=== PATIENT | female | born 1945 | race African-American/Black ===

== ENCOUNTER 2017-06-07 15:48 | Inpatient (IN) | payer OTHER ==
[~2017-06-07] VITALS: Ht 157.5 cm; Wt 68.9 kg
--- NOTE | ~2017-06-07 | PLAN ---
[facility] [place] [address] REHAB UNIT PLAN OF CARE Name: STEFANIA HERNANDEZ Room #: 506-1 ADM IN M.R.#: [id number] Admission: 06/08/17 Attend Phys: Rajendra Bowers MD Discharge: Date of : 49 Report #: [id number] THIS REPORT FOR: //name// CC: Rajendra Rivers DATE OF SERVICE: 06/09/2017 SUBJECTIVE: The patient is seen back today in followup. OBJECTIVE: She was in no distress. Last recorded temperature 37.3, pulse 93, respirations 18, blood pressure 130/63. The patient is alert. No focal calf swelling. She did not appear to have as much tone upon examination of the left upper extremity this morning, although she was just getting up from sleeping overnight. She is working in therapies with transfers are max assist, gait mod assist 5 steps front-wheeled walker. Standard cane. She does have mild comprehensive deficits. ASSESSMENT: 1. 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 2. Recent cerebrovascular accident with further functional decline. 3. Left-sided neglect. 4. Acute renal insufficiency superimposed on chronic kidney disease. 5. Urinary tract infection, on Rocephin. 6. Congestive heart failure. 7. DVT prophylaxis. 8. Hypothyroidism. 9. Dyslipidemia. PLAN: The overall plan of care is based on the preadmission screen, post-admission physician evaluation and information garnered from therapy assessments. 1. Estimated length of stay is probably going to be at least 2-3 weeks pending progress, prognosis is reasonably good. 2. Anticipated interventions includes the interdisciplinary acute inpatient rehabilitation program with PT, OT, speech therapy is involved. Rehab nursing assisting regarding medication management, skin care prophylaxis, bowel and bladder issues and nursing education. We have the senior sales consultant physicians involved. 3. Anticipated functional outcomes would be for the patient to become modified independent with transfers, mobility, ADLs, cognition, so that she can return back to her home setting. 4. Discharge destination would be back home where she lives with her daughter. 5. Expected therapy by discipline includes PT, OT and speech, 1 hour per day each five days a week throughout the duration of the acute inpatient [address] [address] REHAB UNIT PLAN OF CARE Name: STEFANIA HERNANDEZ Room #: 506-[address] [facility].#: [id number] Admission: 06/08/17 Attend Phys: Rajendra Bowers MD Discharge: Date of : 49 Report #: [id number] rehabilitation stay, but we may try to increase the PT and OT and decrease the speech depending upon how she does. <ELECTRONICALLY SIGNED> By: Rajendra Bowers MD 06/14/17 1219 [id number] 1313 Rajendra Bowers MD /[facility]
--- NOTE | ~2017-06-07 | HC ---
[facility] [place] [address] CONSULTATION Name: STEFANIA HERNANDEZ Room #: 506-1 ADM IN M.R.#: [id number] Admission: 06/08/17 Attend Phys: Rajendra Bowers MD Discharge: Date of : 49 Report #: [id number] THIS REPORT FOR: //name// CC: Rajendra Rivers DATE OF SERVICE: 06/12/2017 Neurobehavioral Status Exam: ATTENDING PHYSICIAN: Rajendra Bowers MD. NETWORK TECHNICAL ANALYST: Manny Parekh, PhD. CLINICAL PRESENTATION: The patient is a 71-year-old female admitted to the [facility] rehabilitation unit for comprehensive inpatient rehabilitation program to improve functional mobility and activities of daily living and self-care secondary to impairment from a cerebrovascular accident. She had a nondominant hemispheric CVA with spastic left hemiparesis, left-sided neglect, acute renal insufficiency superimposed on chronic kidney disease, urinary tract infection, congestive heart failure, DVT prophylaxis, hypothyroidism and dyslipidemia. A complete description of her medical condition and history can be found in her medical record. Neuropsychological consultation was requested to provide assistance in the assessment of cognitive and emotional status and to provide recommendations and services. Prior to this most recent admission, she reports living at home with her daughter. However, the daughter is reported to have moved out of the house. The patient indicates having had an argument with her daughter at the time that she fell backward and sustained a stroke. She has two children. The patient has two sisters. She reports having a 9th grade education. 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 TECHNIQUES UTILIZED: Clinical interview, review of medical records, staff consultation and behavioral observation, mini mental status exam 2, -- standard version, category fluency and clock drawing. EXAMINATION FINDINGS: The patient was alert and cooperative with the assessment. There is no evidence of aphasia. She does not report auditory or visual hallucinations. Thought content was appropriate. She presents with very poor insight into her symptoms. She does not describe difficulty with sleep, appetite, energy level, mood or cognitive functioning. The patient does not report any prior history of treatment for mood disorder. Her performance on the MMSE 2 brief version was in the mild to moderate range of [facility] [address] [place] [address] CONSULTATION Name: STEFANIA HERNANDEZ Room #: 506-1 ADM IN .R.#: [id number] Admission: 06/08/17 Attend Phys: Rajendra Bowers MD Discharge: Date of : 49 Report #: [id number] impairment with a raw score 12/16 and a T score of 32. She was 3/3 for initial registration, 3/5 for orientation to time, 5/[address] and 1/3 for immediate recall of 3 items after a brief time delay and distraction. Her performance on the MMSE 2 standard version was in the moderate range of impairment with a percentile rank of 2. She was 0/5 for serial 7's, 2/2 for naming, 1/1 for repetition, 3/3 for auditory comprehension, 1/1 for being able to read and follow single command and 06/28 for writing a sentence. The patient could not copy a simple geometric design. The patient was unable to draw a clock, place the numbers in the clock or set the hands at a designated time. She could not copy a simple geometric design. Her performance in category fluency was a raw score of 6 and a T score of 19, which is extremely low. Deficits are noted in thought organization and expressive speech. The patient is showing adequate orientation with severely impaired immediate recall, attention and concentration and visual spatial disorganization. DIAGNOSTIC IMPRESSION: Major neurocognitive disorder (dementia), unspecified, without behavior disorder -- likely in the mild to moderate range with moderate overall cognitive deficits. RECOMMENDATIONS: The patient appears depressed, although she does not report subjective feelings of depression. She may benefit from the use of an antidepressant medication. She has very poor insight, which places her at an increased safety risk. The patient will require 24-hour care that provides assistance with medical, financial and nutritional management upon discharge. During the rehabilitation program, a consistent schedule with educational information in regard to deficits and methods for compensation are indicated. Thank you very much for allowing me to provide the consultation on this patient. <ELECTRONICALLY SIGNED> By: Manny Parekh, PhD 06/13/17 1355 [id number] [id number] Manny Parekh, PhD /nt
--- NOTE | ~2017-06-07 | H ---
[facility] [place] [address] HISTORY AND PHYSICAL Name: STEFANIA HERNANDEZ Room #: 504-2 ADM IN M.R.#: [id number] Admission: 06/08/17 Attend Phys: Rajendra Bowers MD Discharge: Date of : 49 Report #: [id number] THIS REPORT FOR: //name// CC: Rajendra Rivers DATE OF SERVICE: 06/08/2017 HISTORY OF PRESENT ILLNESS: The patient is a 71-year-old female who had a CVA in March of this year with left hemiparesis who initially was able to go directly home. She was ambulating with a cane, was able to get up and down the steps at home. She was moving slowly, but able to get home with her daughter. Her course was complicated by an episode of renal insufficiency and she was admitted through [facility] and then transferred to [facility] for further therapy at a lesser level of care. While at [facility] she had complications as far as worsening prerenal status with a creatinine increasing from a baseline of 1.4 up to 4.0. She was readmitted this time to [facility]. Her metformin was held as well as her hydrochlorothiazide. She was diagnosed with a urinary tract infection, placed on Rocephin. She was noted to have acute renal insufficiency superimposed on chronic kidney disease. She had had a significant functional decline and we are seeing her in rehabilitation medicine consultation. PAST MEDICAL HISTORY: Includes a prior CVA. She has a history of acute renal insufficiency. HABITS: No history of tobacco or alcohol abuse. ALLERGIES: No known drug allergies. FAMILY HISTORY: Noncontributory. SOCIAL HISTORY: Lives in a house with her daughter. There are 14 steps to get up into the main living area. The daughter notes that she could be there as well as an aunt. The patient's sister is the daughter's aunt apparently could assist as well. They note that there could be other members that could assist as well. REVIEW OF SYSTEMS: Did not offer any current complaints of chest pain, shortness of breath or abdominal discomfort. PHYSICAL EXAMINATION: GENERAL: A 71-year-old female in no obvious distress. VITAL SIGNS: Last recorded temperature 98.5, pulse 88, respirations 20, blood pressure 143/47. The patient was seen earlier. She was noted to be sleepy, but would easily arouse. [address] [address] HISTORY AND PHYSICAL Name: STEFANIA HERNANDEZ Room #: 504-2 [facility] IN ..#: [id number] Admission: 06/08/17 Attend Phys: Rajendra Bowers MD Discharge: Date of : 49 Report #: [id number] HEENT: Appeared to be benign. CHEST: Sounded clear to auscultation. CARDIOVASCULAR: Regular rate and rhythm. ABDOMEN: Bowel sounds positive, nontender. GENITOURINARY AND RECTAL: Deferred. NEUROLOGIC: She does have a left facial droop. EOMs appeared to be full. No obvious visual field neglect to confrontation. EXTREMITIES: She has functional range of motion of the right upper and right lower extremity with strength grade 4- to 4/5, left upper extremity. She continues to hold in assisted position with some increased tone with a positive Chavez's. Proximal strength is grade 3+ distally, she holds it in assisted position again probably strength 3-3+/5. Left lower extremity strength is a grade 3/5. She has some weakness in ankle dorsiflexion probably a grade 3. Right lower extremity strength is more of a grade 4. She was mod assist with sit to stand. Gait was 25 feet mod assist with a front-wheeled walker. I did not assess sensation again, as I just checked yesterday. She does have some left-sided neglect. ASSESSMENT: A 71-year-old right-handed female with the following problem list: 1. 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 2. Recent cerebrovascular accident with further functional decline. 3. Left-sided neglect. 4. Acute renal insufficiency superimposed on chronic kidney disease. 5. Urinary tract infection on Rocephin. 6. Congestive heart failure. 7. DVT prophylaxis. 8. Hypothyroidism. 9. Dyslipidemia. PLAN: The patient is admitted for acute in-hospital inpatient rehabilitation. From a postadmission physician evaluation perspective, there are no relevant changes since the preadmission screening. Please see the above review of prior and current medical and functional conditions and comorbidities. Please see the patient's previous and current functional status. Prior to her admission, she was basically nonambulatory and had become very weak and debilitated. As far as risk of complications, she definitely has renal issues, UTI, congestive heart failure, residual from the stroke as well as the other comorbidities noted above. Initial plan of care involves the interdisciplinary acute inpatient rehabilitation program with goal of maximizing the patient's functional independence, so that she can hopefully go to the home setting with her daughter. The interdisciplinary rehab team will be involved to maximize her functional independence. Measurable functional goals would be for her to hopefully achieve a point that she had previously where she is able to ambulate with the walker or even a cane and be able to get up and down the steps with assistance. The goal is also to improve her functional ADLs, so that family can assist her in the home setting. Prognosis is reasonably good with estimated length of stay probably at least 2 weeks. Potential barriers would include the patient's multiple medical comorbidities and decreased functional status. [facility] [address] [place] [address] HISTORY AND PHYSICAL Name: STEFANIA HERNANDEZ Room #: 504-2 ADM IN M.R.#: [id number] Admission: 06/08/17 Attend Phys: Rajendra Bowers MD Discharge: Date of : 49 Report #: [id number] The patient meets diagnostic criteria for an acute in-hospital inpatient rehabilitation stay. She meets medical necessity criteria and we will have the multiple bridal stylist sales consultant physicians continue to follow with her. She does have the tolerance for an acute rehab program and has appropriate discharge goals back to the home setting. <ELECTRONICALLY SIGNED> By: Rajendra Bowers MD 06/08/17 1414 1123 1145 Rajendra Bowers MD /[facility]
[~2017-06-07 15:48] MED LIST: ALLOPURINOL 10100 M1; ASPIR 8181 MG PO; ATORVASTATIN CA40 MG PO; COMPAZINE25 MG RECTAL; COZAAR 25 MG TA25 M1 PO; HYDROCHLOROTH12.5 M2 PO; METFORMIN HCL500 MG PO; PLAVIX 75 MG TA75 M1 PO; REMERON15 MG PO; SYNTHROID150 MCG
[2017-06-08 11:00] VITALS: BP 122/54
[2017-06-08 19:46] VITALS: BP 139/69
[2017-06-08 20:04] VITALS: BP 130/63
[2017-06-09 07:35] VITALS: BP 123/40
[2017-06-09 19:59] VITALS: BP 121/53
[2017-06-10 06:57] LABS: ALBUMIN 2.5 g/dL (3.4-5.0); CALCIUM 8.4 mg/dL (8.5-10.1); CREATININE 1.3 mg/dL (0.6-1.0); PHOSPHORUS 2.4 mg/dL (2.5-4.9); POTASSIUM 3.7 mmol/L (3.5-5.1)
[2017-06-10 08:00] VITALS: BP 113/43
[2017-06-10 10:02] LABS: HEMATOCRIT 30.8 % (37.0-47.0); HEMOGLOBIN 10.2 gm/dL (12.0-15.0); MCH 26.4 pg (26.0-34.0); MCHC 33.1 g/dL (28.0-37.0); MCV 79.7 fL (80.0-100.0); PLATELET COUNT 160 thou/uL (150-400); RBC 3.87 mil/uL (4.20-5.00); RDW 16.4 % (10.5-14.5); WBC 7.8 thou/uL (4.0-11.0)
[2017-06-10 10:54] LABS: ABSOLUTE NEUTROPHILS 4.8 thou/uL (1.4-8.2); NUCLEATED RBCS 1 /100WBC; PLATELET ESTIMATE NORMAL
[2017-06-10 20:33] VITALS: BP 119/73
[2017-06-11 06:41] LABS: CALCIUM 8.4 mg/dL (8.5-10.1); CREATININE 1.1 mg/dL (0.6-1.0); POTASSIUM 3.3 mmol/L (3.5-5.1)
[2017-06-11 07:25] VITALS: BP 127/55
[2017-06-11 07:35] VITALS: BP 149/60
[2017-06-11 20:34] VITALS: BP 119/54
[2017-06-12 04:08] LABS: ALBUMIN 2.4 g/dL (3.4-5.0); CALCIUM 8.6 mg/dL (8.5-10.1); CREATININE 1.1 mg/dL (0.6-1.0); PHOSPHORUS 2.4 mg/dL (2.5-4.9)
[2017-06-12 04:12] LABS: POTASSIUM 4.4 mmol/L (3.5-5.1)
[2017-06-12 07:55] VITALS: BP 123/72
[2017-06-12 20:09] VITALS: BP 107/37
[2017-06-13 06:54] VITALS: BP 138/70
[2017-06-13 20:00] VITALS: BP 147/49
[2017-06-14 07:24] LABS: ABSOLUTE NEUTROPHILS 4.6 thou/uL (1.4-8.2); BASOPHILS 0.5 % (0.0-2.0); EOSINOPHILS 5.8 % (0.0-3.0); HEMATOCRIT 31.4 % (37.0-47.0); HEMOGLOBIN 10.3 gm/dL (12.0-15.0); LYMPHOCYTES 23.7 % (24.0-44.0); MCH 26.3 pg (26.0-34.0); MCHC 32.8 g/dL (28.0-37.0); MCV 80.3 fL (80.0-100.0); MONOCYTES 8.3 % (1.0-8.0); PLATELET COUNT 195 thou/uL (150-400); POLYS 61.7 % (36.0-66.0); RBC 3.91 mil/uL (4.20-5.00); RDW 16.9 % (10.5-14.5); WBC 7.5 thou/uL (4.0-11.0)
[2017-06-14 07:36] LABS: ALBUMIN 2.5 g/dL (3.4-5.0); CALCIUM 8.9 mg/dL (8.5-10.1); PHOSPHORUS 2.6 mg/dL (2.5-4.9); POTASSIUM 4.9 mmol/L (3.5-5.1)
[2017-06-14 08:30] VITALS: BP 96/58
[2017-06-14 20:10] VITALS: BP 149/69
[2017-06-15 08:22] VITALS: BP 122/59
[2017-06-15 19:35] VITALS: BP 155/69
[2017-06-16 08:03] VITALS: BP 126/58
[2017-06-16 20:01] VITALS: BP 108/40
[2017-06-17 08:00] VITALS: BP 131/56
[2017-06-17 20:24] VITALS: BP 127/49
[2017-06-18 08:00] VITALS: BP 95/53
[2017-06-18 19:57] VITALS: BP 96/41
[2017-06-19 07:15] VITALS: BP 123/63
[2017-06-19 20:01] VITALS: BP 102/55
[2017-06-20 08:45] VITALS: BP 115/76
[2017-06-20 19:37] VITALS: BP 152/72
[2017-06-21 04:24] LABS: ABSOLUTE NEUTROPHILS 4.1 thou/uL (1.4-8.2); BASOPHILS 0.5 % (0.0-2.0); HEMATOCRIT 30.6 % (37.0-47.0); HEMOGLOBIN 10.3 gm/dL (12.0-15.0); LYMPHOCYTES 23.5 % (24.0-44.0); MCH 27.1 pg (26.0-34.0); MCHC 33.8 g/dL (28.0-37.0); MCV 80.4 fL (80.0-100.0); MONOCYTES 7.4 % (1.0-8.0); PLATELET COUNT 205 thou/uL (150-400); POLYS 50.6 % (36.0-66.0); RBC 3.81 mil/uL (4.20-5.00); RDW 17.4 % (10.5-14.5); WBC 8.2 thou/uL (4.0-11.0)
[2017-06-21 04:32] LABS: CALCIUM 8.9 mg/dL (8.5-10.1); CREATININE 1.1 mg/dL (0.6-1.0); POTASSIUM 4.3 mmol/L (3.5-5.1)
[2017-06-21 07:35] VITALS: BP 125/57
[2017-06-21 19:11] VITALS: BP 115/60
[2017-06-22 03:39] LABS: HEMATOCRIT 31.4 % (37.0-47.0); HEMOGLOBIN 10.4 gm/dL (12.0-15.0); MCH 26.8 pg (26.0-34.0); PLATELET COUNT 225 thou/uL (150-400); RBC 3.88 mil/uL (4.20-5.00); RDW 17.5 % (10.5-14.5); WBC 8.8 thou/uL (4.0-11.0)
[2017-06-22 03:40] LABS: CALCIUM 9.1 mg/dL (8.5-10.1); CREATININE 1.1 mg/dL (0.6-1.0); MAGNESIUM 1.3 mg/dL (1.8-2.4); POTASSIUM 4.3 mmol/L (3.5-5.1)
[2017-06-22 05:00] LABS: ABSOLUTE NEUTROPHILS 5.1 thou/uL (1.4-8.2); ANISOCYTOSIS 2+
[2017-06-22 08:15] VITALS: BP 136/86
[2017-06-22 20:33] VITALS: BP 140/60
[2017-06-23 07:30] VITALS: BP 126/60
[2017-06-23 11:11] LABS: MAGNESIUM 1.6 mg/dL (1.8-2.4); POTASSIUM 4.4 mmol/L (3.5-5.1)
[2017-06-23 20:00] VITALS: BP 165/53
[2017-06-24 08:27] VITALS: BP 151/65
[2017-06-24 19:33] VITALS: BP 135/65
[2017-06-25 07:34] VITALS: BP 110/46
[2017-06-25 12:30] LABS: CALCIUM 9.8 mg/dL (8.5-10.1); CREATININE 1.2 mg/dL (0.6-1.0); POTASSIUM 4.3 mmol/L (3.5-5.1)
[2017-06-25 20:22] VITALS: BP 137/54
[2017-06-26 08:10] VITALS: BP 149/51
[2017-06-26 20:02] VITALS: BP 133/62
[2017-06-27 09:50] VITALS: BP 127/57
[2017-06-27 20:59] VITALS: BP 142/54
[2017-06-28 07:24] VITALS: BP 141/78
[2017-06-28 19:39] VITALS: BP 124/57
[2017-06-29 07:15] VITALS: BP 140/50
[2017-06-29 20:12] VITALS: BP 136/42
[2017-06-30 07:30] VITALS: BP 115/49
[2017-06-30 19:57] VITALS: BP 148/66
[2017-07-01 04:53] LABS: HEMATOCRIT 28.6 % (37.0-47.0); HEMOGLOBIN 9.5 gm/dL (12.0-15.0); MCH 27.2 pg (26.0-34.0); MCHC 33.4 g/dL (28.0-37.0); MCV 81.5 fL (80.0-100.0); RBC 3.5 mil/uL (4.20-5.00); RDW 18.2 % (10.5-14.5)
[2017-07-01 05:05] LABS: CALCIUM 9.3 mg/dL (8.5-10.1); CREATININE 0.9 mg/dL (0.6-1.0); MAGNESIUM 1.6 mg/dL (1.8-2.4); POTASSIUM 4.2 mmol/L (3.5-5.1)
[2017-07-01 08:30] VITALS: BP 139/52
[2017-07-01] MEDS ORDERED: MAGOX 400400 MG PO ×2 (17:53)
[2017-07-01] MEDS ORDERED: PLAVIX 75 MG TA75 M1 PO ×2 (17:53)
[2017-07-01] MEDS ORDERED: ATORVASTATIN CA40 MG PO ×2 (17:53)
[2017-07-01] MEDS ORDERED: COLACE100 MG PO ×2 (17:53)
[2017-07-01] MEDS ORDERED: HYDROCHLOROTH12.5 M2 PO ×2 (17:53)
[2017-07-01] MEDS ORDERED: COZAAR 25 MG TA25 M1 PO ×2 (17:53)
[2017-07-01 20:00] VITALS: BP 122/51
[2017-07-02 07:30] VITALS: BP 128/45
[2017-07-02 11:40] VITALS: BP 128/45
[2017-07-02 11:41] VITALS: BP 128/45
[2017-07-02 12:22] VITALS: BP 128/45
== END 2017-07-02 16:45 | disposition home health service (06) | DRG 64 ==
PROVIDERS: Family Medicine; Internal Medicine Nephrology; Nurse Practitioner
DX: I63.9 Cerebral infarction, unspecified (principal); E43 Unspecified severe protein-calorie malnutrition; G81.94 Hemiplegia, unspecified affecting left nondominant side; N39.0 Urinary tract infection, site not specified; N17.9 Acute kidney failure, unspecified; E03.9 Hypothyroidism, unspecified; E78.5 Hyperlipidemia, unspecified; F01.50 Vascular dementia, unspecified severity, without behavioral disturbance, psychotic disturbance, mood disturbance, and anxiety; N18.9 Chronic kidney disease, unspecified; R53.81 Other malaise; E83.42 Hypomagnesemia; E11.22 Type 2 diabetes mellitus with diabetic chronic kidney disease; E86.0 Dehydration; I50.9 Heart failure, unspecified; E87.6 Hypokalemia; K59.00 Constipation, unspecified; Z68.27 Body mass index [BMI] 27.0-27.9, adult; Z28.21 Immunization not carried out because of patient refusal
CPT/HCPCS: 10092; 10112

== ENCOUNTER → 2017-07-05 | Outpatient (CLI) | payer OTHER ==
[~2017-07-05] MED LIST changes: +COLACE100 MG PO; +MAGOX 400400 MG PO
[2017-08-05 11:20] LABS: HEMATOCRIT 30.2 % (37.0-47.0); HEMOGLOBIN 9.9 gm/dL (12.0-15.0); MCH 26.3 pg (26.0-34.0); MCHC 32.9 g/dL (28.0-37.0); RBC 3.77 mil/uL (4.20-5.00); RDW 16.4 % (10.5-14.5); WBC 6.5 thou/uL (4.0-11.0)
[2017-08-05 11:37] LABS: ALBUMIN 2.5 g/dL (3.4-5.0); CALCIUM 8.9 mg/dL (8.5-10.1); CREATININE 1.2 mg/dL (0.6-1.0); MAGNESIUM 1.7 mg/dL (1.8-2.4); POTASSIUM 3.5 mmol/L (3.5-5.1); TOTAL BILIRUBIN 0.3 mg/dL (<0.1-1.0); TOTAL PROTEIN 6.8 g/dL (6.4-8.2)
== END ==
LOC: SEN 08:59
PROVIDERS: Registered Nurse
DX: I69.398 Other sequelae of cerebral infarction (principal); E78.5 Hyperlipidemia, unspecified; E11.9 Type 2 diabetes mellitus without complications; N18.9 Chronic kidney disease, unspecified

== ENCOUNTER → 2017-08-05 | Outpatient (CLI) | payer OTHER | LOC: SEN 10:06 | DX: I10 Essential (primary) hypertension (principal); E11.9 Type 2 diabetes mellitus without complications; I63.9 Cerebral infarction, unspecified; R63.4 Abnormal weight loss ==

== ENCOUNTER → 2018-03-28 | Outpatient (CLI) | payer OTHER ==
[2018-03-28 13:28] VITALS: BP 160/78
[2018-03-28 14:53] LABS: ABSOLUTE NEUTROPHILS 2.3 thou/uL (1.4-8.2); BASOPHILS 0.8 % (0.0-2.0); HEMATOCRIT 36.6 % (37.0-47.0); HEMOGLOBIN 12.1 gm/dL (12.0-15.0); LYMPHOCYTES 36.1 % (24.0-44.0); MCH 25.6 pg (26.0-34.0); MCHC 32.9 g/dL (28.0-37.0); MCV 77.7 fL (80.0-100.0); MONOCYTES 7.3 % (1.0-8.0); PLATELET COUNT 245 thou/uL (150-400); POLYS 50.8 % (36.0-66.0); RBC 4.71 mil/uL (4.20-5.00); WBC 4.5 thou/uL (4.0-11.0)
[2018-03-28 15:08] LABS: ALBUMIN 3.3 g/dL (3.4-5.0); ANION GAP 4 mmol/L (7-16); BUN 20 mg/dL (7-18); CALCIUM 9.5 mg/dL (8.5-10.1); CHLORIDE 109 mmol/L (98-107); CHOLESTEROL 195 mg/dL (<200); CO2 28 mmol/L (21-32); CREATININE 1.4 mg/dL (0.6-1.0); GLUCOSE 108 mg/dL (74-106); HDL CHOLESTEROL 66 mg/dL (>40); LDL CHOLESTEROL 84 mg/dL (<100); MAGNESIUM 1.9 mg/dL (1.8-2.4); POTASSIUM 4.5 mmol/L (3.5-5.1); SGOT 10 U/L (15-37); SGPT 14 U/L (30-65); SODIUM 141 mmol/L (136-145); TOTAL BILIRUBIN 0.2 mg/dL (<0.1-1.0); TOTAL PROTEIN 7.6 g/dL (6.4-8.2); TRIGLYCERIDE 225 mg/dL (<150); VLDL 45 mg/dL (<40)
[2018-03-28 15:39] LABS: TSH 11.279 uIU/mL (0.358-3.740)
[2018-03-29 03:06] LABS: GLYCOHEMOGLOBIN (HGB A1C) 6.6 % (4.8-5.6)
== END ==
LOC: SEN 08:37
PROVIDERS: Nurse Practitioner Family
DX: Z09 Encounter for follow-up examination after completed treatment for conditions other than malignant neoplasm (principal); R53.83 Other fatigue; I13.0 Hypertensive heart and chronic kidney disease with heart failure and stage 1 through stage 4 chronic kidney disease, or unspecified chronic kidney disease; E11.22 Type 2 diabetes mellitus with diabetic chronic kidney disease; N18.2 Chronic kidney disease, stage 2 (mild); E03.9 Hypothyroidism, unspecified; E78.5 Hyperlipidemia, unspecified; E66.9 Obesity, unspecified; Z82.49 Family history of ischemic heart disease and other diseases of the circulatory system